=== PATIENT | female | born 1940 | race Hispanic/Latino ===

== ENCOUNTER 2017-01-20 10:13 | Outpatient (CLI) | payer MEDICARE ==
--- NOTE | 2017-01-20 12:34 | Mammography Report ---
BONE DEXA:01/20/17 10:13:00 CLINICAL: Postmenopausal. No comparison. TECHNIQUE: Two site bone DEXA performed on an Hologic scanner. FINDINGS: The average BMD of the lumbar spine L1-L4 is 0.651g/cm squared with a T-score of -3.6 and a Z-score of -1.2. The average BMD of the right hip is 0.620g/cm squared with a T-score of -2.6 and a Z-score of -0.9. IMPRESSION: WHO classification: Osteoporosis with high fracture risk based on both spine and right hip measurements. RECOMMENDATION: Clinical correlation and routine screening. DEFINITIONS: BMD = Bone Mineral Density T-score = BMD related to mean peak bone mass of young adult (mean expressed in Standard Deviation) Z-score = Age matched BMD expressed in SD World Health Organization (WHO) Diagnostic Criteria Normal T-score > -1 SD Osteopenia T-score between -1 and -2.4 SD Osteoporosis T-score -2.5 SD or below NOTE: BMD is not the only risk factor for fracture. One should also consider factors such as the patient's age, risk of falling, previous osteoporotic fracture, family history of osteoporotic fractures, current smoker, and low body weight. Z-scores are not calculated if >80 years of age.
== END 2017-01-20 10:14 | disposition home or self-care (01) ==
LOC: SPVWC 10:13
PROVIDERS: ATTEND Family Medicine
DX: M81.0 Age-related osteoporosis without current pathological fracture (principal); Z78.0 Asymptomatic menopausal state
CPT/HCPCS: 77080

== ENCOUNTER 2017-03-07 09:51 | Outpatient (CLI) | payer MEDICARE ==
--- NOTE | 2017-03-07 11:06 | Mammography Report ---
RIGHT DIGITAL DIAGNOSTIC MAMMOGRAM : 03/07/17 09:51:00 CLINICAL: Asymmetry identified on outside mammogram. COMPARISON:12/08/16 screening from [place] FINDINGS: Routine views plus MLO and CC spot compression views were performed. Satisfactory effacement of asymmetry on the MLO views. Partial effacement of an outer asymmetry on the CC spot. Ultrasound of the upper-outer right breast was performed and demonstrated a few prominent dilated ducts at 9 o'clock which correlates with the finding on the CC view. No solid mass, shadowing or cyst. IMPRESSION: Mild benign duct ectasia no suspicious finding. BI-RADS CATEGORY: 2 - - Benign RECOMMENDATION: Routine mammographic screening in one year. ACR BI-RADS MAMMOGRAPHIC CODES: 0 = Needs additional imaging evaluation; 1 = Negative; 2 = Benign; 3 = Probably benign; 4 = Suspicious; 5 = Malignant; 6 = Known biopsy-proven malignancy COMMENT: 1. Dense breast tissue, i.e., adenosis, fibrocystic changes, etc., may obscure an underlying neoplasm. 2. Approximately 10% of cancers are not detected with mammography. 3. A negative mammography report should not delay biopsy if a clinically suspicious mass is present. COMMENT: Patient follow-up letters are generated via our [employer] application.
== END 2017-03-07 09:52 | disposition home or self-care (01) ==
LOC: SPVWC 09:51
PROVIDERS: ATTEND Family Medicine
DX: N60.42 Mammary duct ectasia of left breast (principal)
CPT/HCPCS: 76642; G0206